=== PATIENT | male | born 1960 | race Caucasian/White ===

== ENCOUNTER → 2020-05-14 | Outpatient (CLI) | payer BC ==
[~2020-05-14] MED LIST: ATOR20TA66 PO; HYDR-3817 PO; OMG1KC PO; PSEU30TA35 PO; TRAZ-227 PO
--- NOTE | 2020-05-14 13:11 | Diagnostic Imaging Report ---
EXAMINATION: CT Lung Screening. INDICATION: Smoker for screening. TECHNIQUE: Noncontrast, low-dose CT imaging performed according to the lung cancer screening protocol. Auto Exposure Controls were utilize during the CT exam to meet ALARA standards for radiation dose reduction. COMPARISON: Baseline. FINDINGS: There is a large right upper lobe apical soft tissue mass, very worrisome for a primary carcinoma. Anterosuperiorly, this likely extends into the chest wall with some irregular sclerotic changes to the distal right 1st rib as well as some mild vague lucency in the lateral and distal right 2nd rib. Lung cancer and Pancoast type tumor is suspected. The mass would be amenable to CT-guided biopsy. In axial dimensions, it measures 6 cm transverse x 4.4 cm AP with a cephalocaudal extent of 5.6 cm. A retroclavicular nodule lateral to the right thyroid lobe on the right measures 2 cm, suspicious for julissa metastasis. A few subcentimeter upper right paratracheal mediastinal nodes are not grossly pathologic. Medial to the azygos vein, there is a borderline lower right paratracheal node measuring 1.2 x 1.0 cm, equivocal. A subcarinal node is within normal limits measuring 1 x 0.5 cm. There is an irregular nodule in the patient's right lower lobe measuring 1.4 x 1.2 cm. The lungs themselves are hyperexpanded with features of centrilobular and paraseptal emphysema. No thoracic effusion or pneumothorax. A few scattered air cysts are present. No findings of pneumonia. No left lung mass. There is an old appearing L1 superior endplate compression deformity without adjacent edema or hemorrhage with minimal 10% stature loss at its anterior third. This appears chronic. The partially visualized unopacified upper abdomen shows no identifiable adrenal mass. The incompletely visualized liver parenchyma appears nonfocal at this uninfused exam. IMPRESSION: 1. A right upper lobe apical lung mass is suspicious for primary carcinoma of the lung. No convincing pathological appearing lymph nodes with a few equivocal nodes listed above. Background COPD is noted. An irregular mass in the right lower lobe may be metastatic. Primary lesion extension through the apical chest wall is suspected with a likely right supraclavicular metastatic node. 2. A metabolic PET CT may be of benefit as further evaluation. The suspected primary mass itself would be amenable to CT-guided biopsy. 3. The ordering physician is currently unavailable. LUNG-RADS CATEGORY:4X Dictated by: Dictated on workstation # [id number]
== END ==
LOC: RAD 09:53
PROVIDERS: ATTEND Nurse Practitioner Community Health
DX: Z12.2 Encounter for screening for malignant neoplasm of respiratory organs (principal); J43.1 Panlobular emphysema; F17.210 Nicotine dependence, cigarettes, uncomplicated; R91.8 Other nonspecific abnormal finding of lung field; R91.1 Solitary pulmonary nodule

== ENCOUNTER 2020-05-16 06:44 | Outpatient (RCR) | payer BC ==
[~2020-05-16] VITALS: Ht 187 cm; Wt 85.4 kg
[2020-05-16] MEDS ORDERED: OMG1KC PO (12:12)
[2020-05-16] MEDS ORDERED: PSEU30TA35 PO (12:12)
[2020-05-16] MEDS ORDERED: ATOR20TA66 PO (12:12)
[2020-05-16] MEDS ORDERED: HYDR-3817 PO (12:12)
[2020-05-16] MEDS ORDERED: TRAZ-227 PO (12:12)
== END 2020-05-16 12:25 | disposition home or self-care (01) ==
LOC: PREOP 06:44 → EDSTATUS 13:45
PROVIDERS: ATTEND Internal Medicine Critical Care Medicine
DX: Z01.818 Encounter for other preprocedural examination (principal)

== ENCOUNTER → 2020-05-20 | Outpatient (CLI) | payer BC | LOC: LAB FS 10:00 | PROVIDERS: ATTEND Internal Medicine Critical Care Medicine | DX: Z01.812 Encounter for preprocedural laboratory examination (principal); Z20.828 Contact with and (suspected) exposure to other viral communicable diseases | CPT/HCPCS: 87635 ==

== ENCOUNTER → 2020-05-21 | Outpatient (CLI) | payer BC ==
[~2020-05-21] MED LIST changes: +BUPR150T14 PO; +NAPR-1073 PO; +SILD100T67 PO
--- NOTE | 2020-05-21 15:09 | Diagnostic Imaging Report ---
INDICATION: Right upper lobe lung mass. TECHNIQUE: Serum blood glucose level at the time of injection was 99 mg/dL. Patient was administered 13.7 mCi F-18 FDG intravenously in left antecubital location and PET imaging was performed from the top of skull to mid thighs. Noncontrast CT was also performed for attenuation correction and anatomic correlation. COMPARISON: No prior PET/CT studies available for comparison. Comparison is made with a CT chest screening study from 05/14/2020. FINDINGS: There is symmetric activity throughout the brain. There is physiologic activity within the soft tissues of the neck. Previously noted mass in the right lung apex is hypermetabolic demonstrating SUV max approximately 14. Hypermetabolic right paratracheal lymph node at the level of the azygos vein demonstrates an SUV max of 5.8. This lymph node demonstrates a short axis measurement of 9 mm. Subcarinal lymph node demonstrates SUV max of 6.3. A right hilar lymph node demonstrates SUV max of 5.8. Vague uptake within the irregular lesion noted in the right lower lobe is noted with SUV max of 2.1. This is indeterminate. Imaging through the abdomen does show physiologic activity in the gastrointestinal and genitourinary tracts. There appears to be hypermetabolic mass in the left adrenal gland with SUV max of 5.5. No other metabolic or hypermetabolic foci are identified. Note is made of borderline aneurysmal dilatation of the infrarenal abdominal aorta measuring 3.0 cm in AP diameter. IMPRESSION: 1. Hypermetabolic right apical lung mass consistent with primary lung neoplasm. There are hypermetabolic lymph nodes in the right hilum and mediastinum consistent with metastatic disease. There is also a probable metastasis to the left adrenal gland. The irregular density noted in the right lower lobe on recent CT chest only shows low level activity and is indeterminate. 2. Infrarenal abdominal aortic aneurysm. Dictated by: Dictated on workstation # [id number]
== END ==
LOC: RAD 11:23
PROVIDERS: ATTEND Nurse Practitioner Family
DX: F17.210 Nicotine dependence, cigarettes, uncomplicated (principal); I71.4 Abdominal aortic aneurysm, without rupture; R91.8 Other nonspecific abnormal finding of lung field; R06.00 Dyspnea, unspecified
CPT/HCPCS: 78815; A9552

== ENCOUNTER 2020-05-22 06:53 | Day surgery (SDC) | payer BC ==
[2020-05-22] VITALS (10 sets, daily range): BP systolic 90–121; BP diastolic 65–85
[~2020-05-22] VITALS: Ht 187 cm; Wt 85.4 kg
[~2020-05-22 06:53] MED LIST changes: -BUPR150T14 PO; +LACTATED RINGERS 1,000 ML IV ONE; -NAPR-1073 PO; -SILD100T67 PO
[2020-05-22] MEDS ORDERED: LIDOCAINE PF 1% 2 ML VIAL IJ ONE (06:54)
[2020-05-22] MEDS ORDERED: LIDOCAINE PF 2% 5 ML (XYLOCAINE) VIAL INJ ONE (06:54)
[2020-05-22] MEDS ORDERED: proPOfol 200 MG/20 ML (DIPRIVAN) VIAL IV ONE ×3 (07:09→08:10)
[2020-05-22] MEDS ORDERED: LIDOCAINE PF 2% 5 ML (XYLOCAINE) VIAL ONE (07:10)
[2020-05-22] MEDS ORDERED: MIDAZOLAM 2 MG/2 ML (VERSED) VIAL ONE (07:10)
[2020-05-22] MEDS ORDERED: ONDANSETRON 4 MG/2 ML (SDV) Z0FRAN ONE (07:10)
[2020-05-22] MEDS ORDERED: fentaNYL INJECTION 100 MCG/2 ML AMP ONE (07:10)
[2020-05-22] MEDS ORDERED: ROCURONIUM 10 MG/ML 5 ML SYRINGE IV ONE (07:11)
[2020-05-22] MEDS ORDERED: NEOSTIGMINE 3 MG/3 ML VIAL ONE (07:11)
[2020-05-22] MEDS ORDERED: GLYCOPYRROLATE 0.2 MG/ML (ROBINUL) 2 ML VIAL ONE (07:12)
[2020-05-22] MEDS ORDERED: PHENYLEPHRINE 100 MCG/ML 10 ML (ANESTHESIA) SYR ONE (07:12)
[2020-05-22] MEDS ORDERED: LACTATED RINGERS 1,000 ML IV STA (07:16)
[2020-05-22] MEDS ORDERED: NAPR-1073 PO (07:29)
[2020-05-22] MEDS ORDERED: SILD100T67 PO (07:29)
[2020-05-22] MEDS ORDERED: BUPR150T14 PO (07:29)
[2020-05-22] MEDS ORDERED: SUCCINYLCHOLINE INJ 100 MG/5 ML SYR ONE (07:37)
--- NOTE | 2020-05-22 08:29 | Pulmonary Procedures ---
Pulmonary Procedures Date of Procedure Date of Service: May 22, 2020 Bronch Bronchoscopy with fluoroscopy transbronchial bx RUL, brush RUL, BAL RUL EBUS with bx of station 10R lymph nodes. Bilateral wash. Preop DX: mediastinal lymphadenopathy with RUL mass PostOP DX: same Complications: None Pt was sedated per anesthesia. Bronchoscopy was advanced through the ET tube and an anatomical undertaken down to the segmental bronchi bilaterally. No endobronchial lesions noted. Bronchoscopy with fluoroscopy transbronchial bx RUL, brush RUL, BAL RUL EBUS with bx of station 10R lymph nodes Pt tolerated procedure well. No complications noted. DUNCAN SAN DO May 22, 2020 08:29
[2020-05-22] MEDS ORDERED: SEVOFLURANE (ULTANE) 15 ML INHAL SOLN ONE (08:41)
--- NOTE | 2020-05-22 09:13 | Diagnostic Imaging Report ---
INDICATION: Post-thoracoscopy. Time of exam 8:41 AM No prior chest x-rays available for comparison. Comparison is made with PET CT study one day earlier. Large rounded mass in the right lung apex is again noted. There is minimal infiltrate in the right upper lobe as well. No pneumothorax is identified, status post bronchoscopy. Left lung is clear. There is no effusion. IMPRESSION: 1. Right upper lobe mass and minimal right upper lobe infiltrate. 2. No evidence of pneumothorax, status post bronchoscopy. Dictated by: Dictated on workstation # [id number]
--- NOTE | 2020-05-22 10:50 | Diagnostic Imaging Report ---
INDICATION: [id number] before bronchoscopy. Fluoroscopy was provided for Dr. Billings during a bronchoscopy. 48 seconds fluoroscopic time was utilized. A single image was obtained. IMPRESSION: Fluoroscopy during bronchoscopy. Dictated by: Dictated on workstation # [id number]
--- NOTE | 2020-05-27 11:47 | Anesthesia-General Post-Op ---
General Significant Intra-Op Events Notes addendum 05-22-2020 at 0930 Patient Condition Mental Status/LOC: Same as Preop Cardiovascular: Satisfactory Nausea/Vomiting: Absent Respiratory: Satisfactory Pain: Controlled Complications: Absent Post Op Complications Complications None Follow Up Care/Instructions Patient Instructions None needed. Anesthesia/Patient Condition Patient Condition Patient is doing well, no complaints, stable vital signs, no apparent adverse anesthesia problems. No complications reported per nursing. ARLETTE LI CRNA May 27, 2020 11:46
== END 2020-05-22 09:50 | disposition home or self-care (01) ==
LOC: ENDO 06:53
PROVIDERS: ATTEND Internal Medicine Critical Care Medicine
DX: R91.8 Other nonspecific abnormal finding of lung field (principal); R59.0 Localized enlarged lymph nodes; F17.210 Nicotine dependence, cigarettes, uncomplicated; Z79.899 Other long term (current) drug therapy; J44.9 Chronic obstructive pulmonary disease, unspecified; E78.5 Hyperlipidemia, unspecified; K21.9 Gastro-esophageal reflux disease without esophagitis; Z94.7 Corneal transplant status
CPT/HCPCS: 71045; 76000; 87015; 87070; 87101; 87116; 87205; 87206; 88112; 88173; 88305; 88312; 94640

== ENCOUNTER 2020-06-06 08:49 | Outpatient (CLI) | payer BC ==
[~2020-06-06] VITALS: Ht 188 cm; Wt 84.8 kg
[2020-06-06] VITALS (15 sets, daily range): BP systolic 90–131; BP diastolic 59–97
[~2020-06-06 08:49] MED LIST changes: +BUPR150T14 PO; -LACTATED RINGERS 1,000 ML IV ONE; +NAPR-1073 PO; +SILD100T67 PO
[2020-06-06] MEDS ORDERED: NS IV 1000 ML 1,000 ML IV STA (09:08)
[2020-06-06] MEDS ORDERED: fentaNYL INJECTION 100 MCG/2 ML AMP IVP ONE (09:15)
[2020-06-06] MEDS ORDERED: MIDAZOLAM 2 MG/2 ML (VERSED) VIAL IVP ONE (09:15)
[2020-06-06] MEDS ORDERED: LIDOCAINE 1% INJ 20 ML 20 ML VIAL INJ ONE (09:15)
[2020-06-06 09:47] LABS: HEMOGLOBIN 13.7 G/DL (13.3-17.7); MEAN PLATELET VOLUME 10.2 FL (7.4-10.4); WHITE BLOOD COUNT 9.2 10^3/uL (4.3-11.0)
[2020-06-06 09:58] LABS: PROTHROMBIN TIME PATIENT 13.6 SEC (12.2-14.7)
[2020-06-06] MEDS ORDERED: MIDAZOLAM 2 MG/2 ML (VERSED) VIAL ONE (09:58)
[2020-06-06] MEDS ORDERED: fentaNYL INJECTION 100 MCG/2 ML AMP ONE (09:58)
[2020-06-06] MEDS ORDERED: NS IV 1000 ML 1,000 ML ONE (09:59)
[2020-06-06] MEDS ORDERED: LIDOCAINE 1% INJ 20 ML 20 ML VIAL ONE (09:59)
[2020-06-06] MEDS ORDERED: HYDROcodone/APAP 5 MG/325 MG (LORTAB) TAB PO PRN (12:00)
--- NOTE | 2020-06-06 12:44 | Diagnostic Imaging Report ---
INDICATION: A right apical lung mass. Patient presents for CT-guided biopsy. TECHNIQUE: All CT scans use one or more of the following dose optimizing techniques: automated exposure control, MA and/or KvP adjustment based on patient size and exam type or iterative reconstruction. Patient brought to the CT suite and placed on table in the prone position. Axial imaging through the chest was performed to evaluate appropriate entry site. The upper right posterior thorax was prepped and draped in usual sterile fashion. Small amount of 1% lidocaine was utilized for local anesthesia. A 20-gauge coaxial Temno needle was advanced from a posterior approach placed with its tip in the right apical mass and multiple core biopsies were obtained. A blood patch was injected during needle removal. Hemostasis was obtained using manual compression. Patient tolerated the procedure well and left the department in stable condition. Postprocedure images show no complicating features. There is no evidence of pneumothorax. IMPRESSION: Successful CT-guided core biopsy of right apical lung mass. Pathology results are currently pending. Dictated by: Dictated on workstation # [id number]
--- NOTE | 2020-06-06 13:08 | Pre-Op Note & Conscious Sedat ---
Pre-Operative Progress Note H&P Reviewed The H&P was reviewed, patient examined and no changes noted. Date H&P Reviewed: Jun 06, 2020 Time H&P Reviewed: 09:00 Pre-Op Diagnosis: Lung mass Conscious Sedation Pre-Proced Time 09:00 ASA Score 2 For ASA 3 and 4: Consider anesthesia and medical clearance. Also, for patients with a history of failed moderate sedation consider anesthesia. Airway Lungs Heart ASA score ASA 1: a normal healthy patient ASA 2: a patient with a mild systemic disease (mid diabetes, controlled hypertension, obesity ASA 3: a patient with a severe systemic disease that limits activity (angina, COPD, prior Myocardial infarction) ASA 4: a patient with an incapacitating disease that is a constant threat to life (CHF, renal failure) ASA 5: a moribund patient not expected to survive 24 hrs. (ruptured aneurysm) ASA 6: a declared brain- patient whose organs are being harvested. For emergent operations, add the letter E after the classification Mallampati Classification Grade 2 Sedation Plan Analgesia, Amnesia, Plan communicated to team members, Discussed options with patient/fam, Discussed risks with patient/fam The patient is an appropriate candidate to undergo the planned procedure, sedation, and anesthesia. The patient immediately re-assessed prior to indication. MARCELLE MOSQUERA MD Jun 06, 2020 13:08
--- NOTE | 2020-06-06 15:22 | Diagnostic Imaging Report ---
INDICATION: Right lung mass, status post biopsy earlier today. TIME OF EXAM: 1:14 p.m. COMPARISON: Correlation is made with prior chest from 05/22/2020. FINDINGS: Right apical mass is again noted. A density in the right base is also noted. There is no pneumothorax, status post right lung biopsy. Left lung is clear. There is no effusion. IMPRESSION: No evidence of pneumothorax, status post right lung biopsy. Dictated by: Dictated on workstation # [id number]
== END 2020-06-06 13:35 | disposition home or self-care (01) ==
LOC: SDC 08:49
PROVIDERS: ATTEND Nurse Practitioner Family
DX: R91.8 Other nonspecific abnormal finding of lung field (principal); R06.89 Other abnormalities of breathing; R06.00 Dyspnea, unspecified; F17.210 Nicotine dependence, cigarettes, uncomplicated; Z98.890 Other specified postprocedural states
CPT/HCPCS: 36415; 71045; 77012; 85027; 85610; 85730

== ENCOUNTER 2020-06-12 09:07 | Outpatient (CLI) | payer BC ==
[2020-06-12] VITALS (13 sets, daily range): BP systolic 97–132; BP diastolic 69–87
[~2020-06-12] VITALS: Ht 188 cm; Wt 84.8 kg
[2020-06-12] MEDS ORDERED: NS IV 1000 ML 1,000 ML IV STA (09:08)
[2020-06-12] MEDS ORDERED: MIDAZOLAM 2 MG/2 ML (VERSED) VIAL IVP ONE (09:15)
[2020-06-12] MEDS ORDERED: LIDOCAINE 1% INJ 20 ML 20 ML VIAL INJ ONE (09:15)
[2020-06-12] MEDS ORDERED: fentaNYL INJECTION 100 MCG/2 ML AMP IVP ONE (09:15)
[2020-06-12 09:34] LABS: BASOPHILS % (AUTO) 0 % (0-10); EOSINOPHILS # (AUTO) 0.4 10^3/uL (0.0-0.3); EOSINOPHILS % (AUTO) 4 % (0-10); HEMATOCRIT 42 % (40-54); HEMOGLOBIN 14.6 G/DL (13.3-17.7); LYMPHOCYTES # (AUTO) 1.5 X 10^3 (1.0-4.0); LYMPHOCYTES % (AUTO) 16 % (12-44); MEAN CORPUSCULAR HEMOGLOBIN 34 PG (25-34); MEAN CORPUSCULAR HGB CONC 35 G/DL (32-36); MEAN CORPUSCULAR VOLUME 98 FL (80-99); MEAN PLATELET VOLUME 9.4 FL (7.4-10.4); MONOCYTES # (AUTO) 0.8 X 10^3 (0.0-1.0); MONOCYTES % (AUTO) 9 % (0-12); NEUTROPHILS # (AUTO) 6.9 X 10^3 (1.8-7.8); NEUTROPHILS % (AUTO) 72 % (42-75); PLATELET COUNT 228 10^3/uL (130-400); WHITE BLOOD COUNT 9.6 10^3/uL (4.3-11.0)
[2020-06-12 09:50] LABS: PROTHROMBIN TIME PATIENT 13.2 SEC (12.2-14.7)
[2020-06-12] MEDS ORDERED: HYDROcodone/APAP 5 MG/325 MG (LORTAB) TAB PO PRN (12:00)
--- NOTE | 2020-06-12 12:08 | Pre-Op Note & Conscious Sedat ---
Pre-Operative Progress Note H&P Reviewed The H&P was reviewed, patient examined and no changes noted. Date H&P Reviewed: Jun 12, 2020 Time H&P Reviewed: 09:00 Pre-Op Diagnosis: Lung mass Conscious Sedation Pre-Proced Time 09:00 ASA Score 2 For ASA 3 and 4: Consider anesthesia and medical clearance. Also, for patients with a history of failed moderate sedation consider anesthesia. Airway Lungs Heart ASA score ASA 1: a normal healthy patient ASA 2: a patient with a mild systemic disease (mid diabetes, controlled hypertension, obesity ASA 3: a patient with a severe systemic disease that limits activity (angina, COPD, prior Myocardial infarction) ASA 4: a patient with an incapacitating disease that is a constant threat to life (CHF, renal failure) ASA 5: a moribund patient not expected to survive 24 hrs. (ruptured aneurysm) ASA 6: a declared brain- patient whose organs are being harvested. For emergent operations, add the letter E after the classification Mallampati Classification Grade 2 Sedation Plan Analgesia, Amnesia, Plan communicated to team members, Discussed options with patient/fam, Discussed risks with patient/fam The patient is an appropriate candidate to undergo the planned procedure, sedation, and anesthesia. The patient immediately re-assessed prior to indication. MARCELLE MOSQUERA MD Jun 12, 2020 12:08
--- NOTE | 2020-06-12 12:10 | Diagnostic Imaging Report ---
INDICATION: Right lung mass. Patient returns for CT-guided biopsy. TECHNIQUE: All CT scans use one or more of the following dose optimizing techniques: automated exposure control, MA and/or KvP adjustment based on patient size and exam type or iterative reconstruction. DETAILS OF THE PROCEDURE: The patient was brought to the CT suite and placed on the table in the left side down decubitus position. Axial imaging through the chest was performed to evaluate for an appropriate entry site. The right anterior chest was prepped and draped in the usual sterile fashion. The procedure was performed utilizing conscious sedation with Radiology nursing and constant patient monitoring. The patient was given a total of 100 mg of fentanyl intravenously and 1 mg of Versed intravenously. The total procedure time was approximately 16 minutes. A small amount of 1% lidocaine was utilized for local anesthesia. A 20-gauge coaxial Temno needle was advanced and placed within the mass in the right upper lobe. A total of four core biopsies was obtained. A blood patch was injected during needle removal. Followup imaging shows no complicating features. No pneumothorax is identified. The patient tolerated the procedure well and left the Department in stable condition. IMPRESSION: Successful CT-guided core biopsy of the right upper lobe mass utilizing conscious sedation. Pathology results are currently pending. Dictated by: Dictated on workstation # [id number]
--- NOTE | 2020-06-12 13:50 | Diagnostic Imaging Report ---
INDICATION: Right lung biopsy. TIME OF EXAM: 1:30 PM. COMPARISON: 06/06/2020. FINDINGS: The right apical lung mass is again noted. There is no evidence of pneumothorax status post right lung biopsy. Basilar interstitial changes are noted. IMPRESSION: No evidence of pneumothorax status post right lung mass biopsy. Dictated by: Dictated on workstation # [id number]
== END 2020-06-12 15:00 | disposition home or self-care (01) ==
LOC: SDC 09:07
PROVIDERS: ATTEND Internal Medicine Critical Care Medicine
DX: R91.8 Other nonspecific abnormal finding of lung field (principal); R06.89 Other abnormalities of breathing; R06.00 Dyspnea, unspecified; F17.210 Nicotine dependence, cigarettes, uncomplicated; Z98.890 Other specified postprocedural states
CPT/HCPCS: 36415; 71045; 77012; 85025; 85610; 85730; 88305; 88344; 99156; 99157

== ENCOUNTER → 2020-06-26 | Outpatient (CLI) | payer BC ==
[~2020-06-26] MED LIST changes: +GADOBUTROL 10 MMOL/10 ML (GADAVIST) VIAL IV ONE
[2020-06-26 13:24] LABS: BUN/CREATININE RATIO 17; CALCIUM 9.2 MG/DL (8.5-10.1); CARBON DIOXIDE 23 MMOL/L (21-32); CHLORIDE 99 MMOL/L (98-107); CREATININE SERUM 0.77 MG/DL (0.60-1.30); GFR ESTIMATED > 60; GLUCOSE 115 MG/DL (70-105); POTASSIUM 4.6 MMOL/L (3.6-5.0); SODIUM 135 MMOL/L (135-145)
--- NOTE | 2020-06-26 14:38 | Diagnostic Imaging Report ---
CLINICAL INDICATION: Patient has history of lung cancer. EXAM: MRI of the brain performed without and with 9 cc of Gadavist IV contrast. Sequences include axial DWI, ADC map, axial gradient echo, axial T2, axial FLAIR, axial T1, axial T1 post IV contrast, coronal T1 fat-sat post IV contrast, and sagittal T1 post IV contrast. COMPARISON: None. FINDINGS: There is a 5 mm focal area of high T2 signal involving the lateral aspect of the left cerebellum with small amount of adjacent parenchymal increased T2 signal. There are no other areas of abnormal IV contrast enhancement. There is otherwise no evidence of acute cerebral infarct, intracranial hemorrhage, or gross mass effect. The brain parenchymal volume appears appropriate for patient's age. There is normal philippe-white matter distinction. There is no significant midline shift or herniation. The [place] vascular structures show no gross abnormality as visualized. The pituitary gland, sella, and suprasellar regions are unremarkable as visualized. There is no evidence of hydrocephalus. The basal cisterns are unremarkable. The skull, extracranial soft tissue, and orbits are unremarkable. There is yzoq-ee-sgvsfrar ethmoid sinus mucosal thickening. There is minimal mucosal thickening involving the frontal sinus. Temporal bones show no significant abnormality. IMPRESSION: 1: There is a 5 mm focal area of enhancement involving the left side of the cerebellum with small amount of adjacent increased T2 signal. This is concerning for metastatic disease. 2: There are no other areas concerning for metastatic disease seen on this exam. 3: Mild age-related brain parenchymal changes. 4: Ybof-wk-kochjlpi ethmoid sinus disease. Dictated by: Dictated on workstation # [id number]
== END ==
LOC: RAD 14:00
PROVIDERS: ATTEND Internal Medicine Hematology & Oncology
DX: C34.90 Malignant neoplasm of unspecified part of unspecified bronchus or lung (principal); G93.89 Other specified disorders of brain; J32.2 Chronic ethmoidal sinusitis
CPT/HCPCS: 36415; 70553; 80048

== ENCOUNTER → 2020-07-30 | Outpatient (CLI) | payer BC ==
[~2020-07-30] MED LIST changes: +PS30T PO; -PSEU30TA35 PO
--- NOTE | 2020-07-30 13:29 | Diagnostic Imaging Report ---
PROCEDURE: MR imaging cervical spine with and without contrast. TECHNIQUE: Multiplanar and multisequence MRI of the cervical spine was performed with and without contrast. INDICATION: Chest pain and right arm pain. Patient has history of a lung mass. Overall quality of study is somewhat compromised due to patient involuntary twitching. There is some straightening of the normal cervical lordotic curvature. Minimal anterolisthesis C3 on C4 and C7 on T1 with minimal retrolisthesis C4 on C5 and C6 on C7 is noted. No geographic marrow lesion is identified. There is multilevel degenerative disc disease with variable disc space narrowing and desiccation with endplate osteophyte formation. Cervical cord does show homogeneous signal intensity and normal morphology. C2-C3: Central canal and neural foramina are patent. C3-C4: Endplate osteophytes indent the ventral thecal sac. Mild narrowing of the canal. There is also fairly significant bilateral neural foraminal narrowing due to uncovertebral joint degenerative change. C4-C5: Endplate osteophytes indent the ventral thecal sac and produce very mild narrowing. There is moderate bilateral neural foraminal stenosis. C5-C6: Endplate osteophytes indent the ventral thecal sac. No significant canal narrowing is seen. Left neural foramen does show moderate narrowing. Right neural foramen is patent. C6-C7: Endplate osteophytes indent the ventral thecal sac, produced mild narrowing. There is significant left and mild right neural foraminal stenosis. C7-T1: Central canal is patent. Neural foramina are patent. The known right apical lung mass is again noted. This extends into the chest wall into the right supraclavicular location. No definite involvement of the mass into the spinal canal or neural foramina is seen. IMPRESSION: Multilevel cervical spondylosis with multilevel central canal and neural foraminal narrowing described level by level above. No abnormal enhancement is identified apart from known right apical and right supraclavicular lung mass. Dictated by: Dictated on workstation # [id number]
== END ==
LOC: RAD 10:15
DX: M47.22 Other spondylosis with radiculopathy, cervical region (principal); M48.02 Spinal stenosis, cervical region; R91.8 Other nonspecific abnormal finding of lung field
CPT/HCPCS: 72156

== ENCOUNTER 2020-09-12 17:03 | Emergency (ER) | payer BC ==
[~2020-09-12] VITALS: Ht 187 cm; Wt 100.0 kg
[~2020-09-12 17:03] MED LIST changes: -GADOBUTROL 10 MMOL/10 ML (GADAVIST) VIAL IV ONE
--- NOTE | 2020-09-12 17:30 | ED General ---
General Chief Complaint: General Problems/Pain Stated Complaint: STROKE SYMPTOMS Nursing Sepsis Screen: No Definite Risk Source of Information: Patient, RN Notes Reviewed History of Present Illness Date Seen by Provider: Sep 12, 2020 Time Seen by Provider: 17:30 Initial Comments 59-year-old male presenting to the emergency department with complaints of memory issues. He had been seen at [facility] which used to be [facility] earlier today for imaging about his metastatic stage 4 lung cancer. He got home this evening and shortly before 5 pm he got a call from [facility] out of [place] that he needed to go to the ED because the tests from showed he had previously had a stroke. He denies any new weakness or numbness in his arms or legs and no difficulty with walking. He has no n/v/ He continues to smoke cigarettes. He denies having a headache. He states he can not remember things so he wants to have us talk to his about everythin. Allergies and Home Medications Allergies Coded Allergies: No Known Drug Allergies (Unverified , 05/16/20) Home Medications Atorvastatin Calcium 20 Mg Tablet, 20 MG PO DAILY, (Reported) [place] 3 Polyunsat Fatty Acids 1,000 Mg Cap, 1,000 MG PO DAILY, (Reported) Pseudoephedrine HCl 30 Mg Tablet, 30 MG PO Q6H PRN for CONSTIPATION-9TH LINE, (Reported) Patient Home Medication List Home Medication List Reviewed: Yes Review of Systems Review of Systems Constitutional: No chills, No fever EENTM: no symptoms reported Respiratory: cough (chronic and no worse than normal) Cardiovascular: No chest pain Gastrointestinal: no symptoms reported Genitourinary: no symptoms reported Musculoskeletal: no symptoms reported Skin: no symptoms reported Psychiatric/Neurological: See HPI Past Msehqfa-Ovvayk-Bcauky Hx Past Med/Social Hx: Reviewed Nursing Past Med/Soc Hx Patient Social History Alcohol Use: Denies Use Recreational Drug Use: No Smoking Status: Current Everyday Smoker Type Used: Cigarettes 2nd Hand Smoke Exposure: Yes Recent Foreign Travel: No Contact w/Someone Who Travel: No Recent Infectious Disease Expo: No Recent Hopitalizations: No Physical Abuse: No Sexual Abuse: No Mistreated: No Fear: No Immunizations Up To Date Tetanus Booster (TDap): Unknown Seasonal Allergies Seasonal Allergies: No Past Medical History Surgeries: Yes (CORNEA TRANSPLANT, WRIST-SCREW) Respiratory: Yes (DYSPNEA) Currently Using CPAP: No Currently Using BIPAP: No Cardiac: Yes High Cholesterol Neurological: No Sexually Transmitted Disease: No HIV/AIDS: No Genitourinary: No Gastrointestinal: Yes Gastroesophageal Reflux Musculoskeletal: No Endocrine: No HEENT: Yes (CONTACTS/GLASSES) Loss of Vision: Denies Hearing Impairment: Denies Cancer: No Psychosocial: No Integumentary: No Blood Disorders: No Adverse Reaction/Blood Tranf: No (N/A) Physical Exam Vital Signs Vital Signs - First Documented 09/12/20 17:18 Temp 36.8 Pulse 84 Resp 18 B/P (MAP) 137/69 (91) Pulse Ox 99 O2 Delivery Room Air Capillary Refill : Less Than 3 Seconds Height, Weight, BMI Height: '" Weight: lbs. oz. kg; 28.00 BMI Method: General Appearance: No Apparent Distress, Chronically ill HEENT: PERRL/EOMI Neck: Non Tender, Supple Respiratory: Chest Non Tender, No Accessory Muscle Use, No Respiratory Distress, Decreased Breath Sounds Cardiovascular: Regular Rate, Rhythm, Normal Peripheral Pulses Gastrointestinal: No Pulsatile Mass, Non Tender, Soft Extremity: Normal Capillary Refill, Non Tender, No Calf Tenderness, No Pedal Edema Neurologic/Psychiatric: Alert, Oriented x3, commercial lines sales executive II-XII Norm as Tested Skin: Normal Color, Warm/Dry Progress/Results/Core Measures Suspected Sepsis Recent Fever Within 48 Hours: No Infection Criteria Present: None New/Unexplained Altered Menta: No Sepsis Screen: No Definite Risk SIRS Temperature: Pulse: 84 Respiratory Rate: 18 Blood Pressure 137 /69 Mean: 91 Results/Orders My Orders Orders - GEOVANY STARKEY MD Ct Head Wo (09/12/20 17:28) Vital Signs/I&O 09/12/20 09/12/20 17:18 19:38 Temp 36.8 36.8 Pulse 84 84 Resp 18 18 B/P (MAP) 137/69 (91) 137/69 (91) Pulse Ox 99 99 O2 Delivery Room Air Room Air Capillary Refill : Less Than 3 Seconds Blood Pressure Mean: 91 Progress Note #1: Progress Note try to get records from [facility] in about his tests today. Perform CT head to see if any change from previous imaging here in our system. Progress Note #2: Progress Note Records from [facility] in obtained for MRI brain as well as the CT scan from here in ED. both show area in left frontal lobe with acute/subacute cva. He has metastatic area with hemorrhage in it as well. No active bleeding seen on MRI. D/w Dr. Mack from [facility] as she is contract administration manager for the service at [facility]. With pt having no sudden deficit and not presenting in a treatment window opportunity there are more risks than benefits for an acute hospital admit. He would need to quit smoking and check with [facility] and Ruba Wilson to see if they felt he was a candidate for aspirin therapy or anticoagulant therapy since he also has some area of hemorrhage in his metastatic disease. He may need Carotid doppler and Echo and other work up but these may have also been done recently with his cancer work up. will defer to Ruba Wilson and staff that know him better. Rn Compliance and pt that if he has new neuro deficit or changes to be seen immediately. Call clinic in am to determine follow up and aspirin therapy and next steps for outpatient work up. Diagnostic Imaging Diagonstic Imaging: CT Plain Films/CT/US/NM/MRI: head Comments [facility], [facility]. [place], [place] NAME: FIONA KAM [facility] REC#: [id number] PT STATUS: REG ER : 1960 PHYSICIAN: GEOVANY STARKEY MD ADMIT DATE: 09/12/20/ER FS Draft Date of Exam:09/12/20 CT HEAD WO EXAMINATION: CT head without contrast. TECHNIQUE: Multiple contiguous axial images were obtained through the brain without the use of intravenous contrast. All CT scans use one or more of the following dose optimizing techniques: automated exposure control, MA and/or KvP adjustment based on a patient size and exam type, or iterative reconstruction. HISTORY: Stroke seen on recent imaging COMPARISON: None available. FINDINGS: There is a 10 mm peripherally high attenuating centrally low attenuating lesion in the left cerebellum. There is a new area of edema in the left alexander radiata. No mass effect or midline shift. The ventricles are normal in size and configuration. Basilar cisterns are patent. There are no intra- or extra-axial fluid collections. The orbits are normal. Paranasal sinuses are normal. Mastoid air cells are clear. No soft tissue abnormality is seen. No osseus lesions or fractures are seen. IMPRESSION: 1. Peripherally high attenuating and centrally low attenuating lesion in the left cerebellar hemisphere measuring 10 mm. The morphology is most concerning for a focal metastatic lesion with internal hemorrhage. MRI is recommended for further evaluation, with and without contrast. 2. Area of hypoattenuation in the left alexander radiata, this can be evaluated on MRI as well as they may reflect a subacute infarct. 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 Decision time for Depature: 19:20 Referrals: [facility] (PCP) Primary Care Physician ASHLEY BAIG (Family) Primary Care Physician Patient Instructions: Stroke Rehab Information, Brain Metastases, Lowering the Risk of Having Another Stroke Add. Discharge Instructions: Call Ruba Wilson in the morning and see if the clinic wants you to be taking a baby aspirin or any blood thinner after finding a stroke on your testing today. You also have some area of blood in the metastatic lesions in your brain so there is a risk that taking blood thinners like aspirin could make you have more bleeding there. Ruba may have to discuss this with the Oncology doctors at [facility] or have you see a Neurology/Stroke specialist to decide about taking any additional medicine. If you have new weakness on one side of your body, trouble swallowing, trouble with your speech or new possible stroke symptoms then seek medical care right away to see what treatment options are available for you. All discharge instructions reviewed with patient and/or family. Voiced understanding. GEOVANY STARKEY MD Sep 12, 2020 17:30
--- NOTE | 2020-09-12 18:05 | Diagnostic Imaging Report ---
EXAMINATION: CT head without contrast. TECHNIQUE: Multiple contiguous axial images were obtained through the brain without the use of intravenous contrast. All CT scans use one or more of the following dose optimizing techniques: automated exposure control, MA and/or KvP adjustment based on a patient size and exam type, or iterative reconstruction. HISTORY: Stroke seen on recent imaging COMPARISON: None available. FINDINGS: There is a 10 mm peripherally high attenuating centrally low attenuating lesion in the left cerebellum. There is a new area of edema in the left alexander radiata. No mass effect or midline shift. The ventricles are normal in size and configuration. Basilar cisterns are patent. There are no intra- or extra-axial fluid collections. The orbits are normal. Paranasal sinuses are normal. Mastoid air cells are clear. No soft tissue abnormality is seen. No osseus lesions or fractures are seen. IMPRESSION: 1. Peripherally high attenuating and centrally low attenuating lesion in the left cerebellar hemisphere measuring 10 mm. The morphology is most concerning for a focal metastatic lesion with internal hemorrhage. MRI is recommended for further evaluation, with and without contrast. 2. Area of hypoattenuation in the left alexander radiata, this can be evaluated on MRI as well as they may reflect a subacute infarct. Dictated by: Dictated on workstation # [id number]
[2020-09-12 19:38] VITALS: BP 137/69
== END 2020-09-12 19:38 | disposition home or self-care (01) ==
LOC: EDUNIT# 17:03 → ER FS 17:05
DX: I63.9 Cerebral infarction, unspecified (principal); C79.31 Secondary malignant neoplasm of brain; E78.00 Pure hypercholesterolemia, unspecified; F17.210 Nicotine dependence, cigarettes, uncomplicated
CPT/HCPCS: 70450

== ENCOUNTER → 2020-10-23 | Outpatient (CLI) | payer BC | LOC: CARD 09:10 | PROVIDERS: ATTEND Nurse Practitioner Family | DX: I63.9 Cerebral infarction, unspecified (principal); I51.7 Cardiomegaly | CPT/HCPCS: 93225; 93226; 93306 ==

== ENCOUNTER 2020-11-15 15:38 | Observation (INO) | payer BC ==
[~2020-11-15] VITALS: Ht 188.9 cm; Wt 75.7 kg
[2020-11-15] MEDS ORDERED: NS IV 1000 ML 1,000 ML IV SCH (16:15)
[2020-11-15] MEDS ORDERED: morphine INJ 10 MG/ML 1ML (SYR OR VIAL) IVP STA (16:15)
[2020-11-15] MEDS ORDERED: ONDANSETRON 4 MG/2 ML (SDV) Z0FRAN IVP ONE (16:15)
--- NOTE | 2020-11-15 16:35 | Diagnostic Imaging Report ---
INDICATION: Shortness of breath. EXAMINATION: Frontal chest obtained at 04:13 p.m. and compared to 06/12/2020. FINDINGS: Heart is normal in size. There is central vascular congestion with some interstitial edema and/or fibrosis. These findings are not changed compared to the prior study. There is a mass in the right apex again noted which is similar in size to the prior study. There is no pneumothorax or pleural fluid. There is a new Port-A-Cath over the left chest with catheter tip overlying the SVC right atrial junction. IMPRESSION: There is some central vascular congestion with interstitial edema and/or fibrosis, similar to the prior study. There is no new infiltrate. Stable right apical lung mass. There is no significant pleural fluid. Dictated by: Dictated on workstation # [id number]
[2020-11-15 17:01] LABS: WHITE BLOOD COUNT 10.7 10^3/uL (4.3-11.0)
[2020-11-15 17:02] LABS: BASOPHILS % (AUTO) 0 % (0-10); EOSINOPHILS # (AUTO) 0.4 10^3/uL (0.0-0.3); EOSINOPHILS % (AUTO) 4 % (0-10); HEMATOCRIT 34 % (40-54); HEMOGLOBIN 11.6 G/DL (13.3-17.7); LYMPHOCYTES # (AUTO) 0.8 X 10^3 (1.0-4.0); LYMPHOCYTES % (AUTO) 7 % (12-44); MEAN CORPUSCULAR HEMOGLOBIN 33 PG (25-34); MEAN CORPUSCULAR HGB CONC 35 G/DL (32-36); MEAN CORPUSCULAR VOLUME 96 FL (80-99); MEAN PLATELET VOLUME 10.4 FL (7.4-10.4); MONOCYTES # (AUTO) 0.9 X 10^3 (0.0-1.0); MONOCYTES % (AUTO) 8 % (0-12); NEUTROPHILS # (AUTO) 8.6 X 10^3 (1.8-7.8); NEUTROPHILS % (AUTO) 80 % (42-75); PLATELET COUNT 69 10^3/uL (130-400)
[2020-11-15 17:23] LABS: ALANINE AMINOTRANSFERASE 14 U/L (0-55); ALBUMIN 3.8 GM/DL (3.2-4.5); ALKALINE PHOSPHATASE 77 U/L (40-136); BILIRUBIN,TOTAL 0.4 MG/DL (0.1-1.0); BUN/CREATININE RATIO 19; CALCIUM 8.8 MG/DL (8.5-10.1); CARBON DIOXIDE 27 MMOL/L (21-32); CHLORIDE 103 MMOL/L (98-107); GFR ESTIMATED > 60; GLUCOSE 99 MG/DL (70-105); POTASSIUM 4.4 MMOL/L (3.6-5.0); SODIUM 137 MMOL/L (135-145); TOTAL PROTEIN 6.1 GM/DL (6.4-8.2)
[2020-11-15 17:49] LABS: EOSINOPHILS % (MANUAL) 2 %; LYMPHOCYTES % (MANUAL) 7 %; MONOCYTES % (MANUAL) 7 %; NEUTROPHILS % (MANUAL) 84 %
[2020-11-15] MEDS ORDERED: ASPIRIN 81 MG CHEW (CHILDREN'S ASA) PO ONE (21:15)
[2020-11-15 23:11] VITALS: BP 108/52
[2020-11-15] MEDS ORDERED: ONDANSETRON 4 MG/2 ML (SDV) Z0FRAN IV PRN (23:45)
[2020-11-15] MEDS ORDERED: CATHETER FLUSH 10 ML SYR IV PRN (23:45)
[2020-11-15] MEDS: morphine INJ 4 MG/ML 1 ML (VIAL/SYRINGE) IV PRN (23:49)
[2020-11-16] MEDS: NICOTINE 14 MG (NICODERM) PATCH TD SCH ×2 (00:32→10:14)
[2020-11-16] MEDS ORDERED: LORazepam INJ 2 MG/ML (ATIVAN) VIAL ONE (02:49)
[2020-11-16] MEDS: LORazepam INJ 2 MG/ML (ATIVAN) VIAL IVP PRN ×2 (02:59→10:14)
[2020-11-16] MEDS: CATHETER FLUSH 10 ML SYR IV SCH ×2 (03:00→14:39)
[2020-11-16 04:26] VITALS: BP 100/54
[2020-11-16] MEDS: morphine INJ 4 MG/ML 1 ML (VIAL/SYRINGE) IV PRN ×3 (05:34→15:52)
[2020-11-16 06:33] LABS: BASOPHILS % (AUTO) 0 % (0-10); MEAN CORPUSCULAR HEMOGLOBIN 33 pg (25-34); MEAN CORPUSCULAR HGB CONC 34 g/dL (32-36); MEAN CORPUSCULAR VOLUME 97 fL (80-99)
[2020-11-16 06:36] LABS: EOSINOPHILS # (AUTO) 0.3 10^3/uL (0.0-0.3); EOSINOPHILS % (AUTO) 3 % (0-10); HEMATOCRIT 34 % (40-54); HEMOGLOBIN 11.4 g/dL (13.3-17.7); LYMPHOCYTES # (AUTO) 0.9 10^3/uL (1.0-4.0); LYMPHOCYTES % (AUTO) 7 % (12-44); MONOCYTES % (AUTO) 8 % (0-12); NEUTROPHILS # (AUTO) 9.5 10^3/uL (1.8-7.8); NEUTROPHILS % (AUTO) 81 % (42-75); PLATELET COUNT 62 10^3/uL (130-400); WHITE BLOOD COUNT 11.7 10^3/uL (4.3-11.0)
[2020-11-16 06:40] LABS: ALBUMIN 3.5 GM/DL (3.2-4.5); CHLORIDE 103 MMOL/L (98-107); POTASSIUM 4.2 MMOL/L (3.6-5.0); SODIUM 136 MMOL/L (135-145)
[2020-11-16 06:41] LABS: CALCIUM 8.2 MG/DL (8.5-10.1)
[2020-11-16 06:42] LABS: GLUCOSE 97 MG/DL (70-105); TOTAL PROTEIN 6.1 GM/DL (6.4-8.2)
[2020-11-16 06:43] LABS: CARBON DIOXIDE 23 MMOL/L (21-32)
[2020-11-16 06:44] LABS: BILIRUBIN,TOTAL 0.6 MG/DL (0.1-1.0)
[2020-11-16 06:46] LABS: ALKALINE PHOSPHATASE 62 U/L (40-136); CREATININE SERUM 0.79 MG/DL (0.60-1.30); GFR ESTIMATED > 60
[2020-11-16 06:47] LABS: BUN/CREATININE RATIO 19
[2020-11-16 06:49] LABS: ALANINE AMINOTRANSFERASE 16 U/L (0-55)
[2020-11-16 07:12] LABS: BAND NEUTROPHILS 2 %; EOSINOPHILS % (MANUAL) 2 %; LYMPHOCYTES % (MANUAL) 13 %; MONOCYTES % (MANUAL) 3 %; NEUTROPHILS % (MANUAL) 80 %; RBC MORPH NORMAL
[2020-11-16 08:00] VITALS: BP 130/72
[2020-11-16 08:15] VITALS: BP 118/61
[2020-11-16] MEDS ORDERED: KETOROLAC 30 MG/ML VIAL IVP ONE (09:00)
--- NOTE | 2020-11-16 10:22 | History & Physical-Hospitalist ---
History of Present Illness HPI/Chief Complaint The patient is a 60-year-old white male with metastatic non-small cell lung cancer who his brought him to the emergency room because of increased confusion over baseline and apparent increase in his right chest wall pain. He had received his first dose of palliative radiation therapy to the right chest as his states that he has had involvement of the right brachial plexus with a lot of pain despite high-dose methadone 40 mg twice daily and gabapentin 600 mg 3 times daily. He has had intermittent confusion that in the past they felt was aggravated by morphine long-acting which resulted in his switch to methadone. He still been getting short acting morphine. On my arrival he was confused complaining about right chest wall pain and wishing to smoke. He has a 3 pack/day habits and currently has a nicotine patch on started last night had threatened to leave AMA but after Ativan for anxiety we were able to convince him to stay. His confirms that he has been DO NOT RESUSCITATE status. Unfortunately in the emergency room because of his chest wall pain which was right-sided and very noncardiac sounding troponin level was obtained and was weakly positive at 0.5 it was repeated several hours later and was 0.7. ECG did not reveal any acute ischemic change but incomplete right bundle branch block left anterior fascicular block reportedly not a new finding. He had received his first radiation therapy treatment on and the was concerned that his change in status was secondary to a side effect of radiation therapy. Date Seen 11/16/20 Time Seen by a Provider: 09:00 Attending Physician Farida Munoz MD [facility] Referring Physician Date of Admission Nov 15, 2020 at 22:23 Home Medications & Allergies Home Medications Reviewed patient Home Medication Reconciliation performed by pharmacy medication reconciliations veterinary technician assistant and/or nursing. Patients Allergies have been reviewed. Allergies Allergies Coded Allergies No Known Drug Allergies (Unverified05/16/20) Past Iqvaupy-Ousfmg-Reuzzx Hx Past Med/Social Hx: Reviewed and Corrections made Patient Social History Alcohol Use: Denies Use Recreational Drug Use: No Smoking Status: Current Everyday Smoker Type Used: Cigarettes 2nd Hand Smoke Exposure: Yes Recent Foreign Travel: No Contact w/other who traveled: No Recent Hopitalizations: No Recent Infectious Disease Expo: No Immunizations Up To Date Tetanus Booster (TDap): Unknown Seasonal Allergies Seasonal Allergies: No Past Medical History Currently Using CPAP: No Currently Using BIPAP: No Cardiac: High Cholesterol Sexually Transmitted Disease: No HIV/AIDS: No Gastrointestinal: Gastroesophageal Reflux Loss of Vision: Denies Hearing Impairment: Denies History of Blood Disorders: No Adverse Reaction to Blood Stein: No (N/A) Review of Systems Constitutional: see HPI Physical Exam Physical Exam Vital Signs Vital Signs - First Documented 11/15/20 15:48 Temp 37.2 Pulse 67 Resp 20 B/P (MAP) 116/41 (66) Pulse Ox 96 O2 Delivery Room Air Capillary Refill : Less Than 3 Seconds Height, Weight, BMI Height: '" Weight: lbs. oz. kg; 21.21 BMI Method: General Appearance: Moderate Distress Respiratory: Lungs Clear, Normal Breath Sounds, No Accessory Muscle Use, No Respiratory Distress, Other (Allodynia of the right chest wall with severe pain with minimal pressure no obvious deformities noted.) Cardiovascular: Regular Rate, Rhythm, No Edema, No Gallop, No JVD, No Murmur, Normal Peripheral Pulses Gastrointestinal: Normal Bowel Sounds, No Organomegaly, No Pulsatile Mass, Non Tender, Soft Extremity: No Calf Tenderness, No Pedal Edema Results Results/Procedures Labs Laboratory Tests 11/15/20 16:55 11/16/20 05:45 Patient resulted labs reviewed. Assessment/Plan Admission Diagnosis 1. Right chest wall pain secondary to non-small cell carcinoma that apparently started in the right upper lobe with direct extension into the chest wall as well as right brachial plexus will resume methadone as needed morphine add Toradol and continue gabapentin as well. 2. Delirium multifactorial 3. COPD secondary to significant ongoing tobaccoism. 4. Continue DNR status as per who understands the gravity of his circumstances and wishes comfort care at this point. Advised hospice as long as they can continue palliative radiotherapy which should be the case which she is agreeable to. They have been contacted and will likely visit both of them at home on discharge. Admission Status: Inpatient Order (span 2 midnights) Reason for Inpatient Admission: See admission diagnosis FARIDA MUNOZ MD Nov 16, 2020 10:22
[2020-11-16] MEDS ORDERED: METHADONE 10 MG (DOLOPHINE) TAB PO ONE (11:00)
[2020-11-16 12:00] VITALS: BP 115/65
[2020-11-16] MEDS ORDERED: GABAPENTIN 600 MG (NEURONTIN) TAB PO SCH (13:00)
[2020-11-16] MEDS ORDERED: KETOROLAC 30 MG/ML VIAL IVP PRN (15:00)
[2020-11-16 15:57] VITALS: BP 114/56
[2020-11-16] MEDS ORDERED: METHADONE 10 MG (DOLOPHINE) TAB PO SCH (21:00)
== END 2020-11-16 16:17 | disposition left against medical advice (07) ==
LOC: EDUNIT# 15:38 → ER FS 15:39 → UNDOADMIN 22:23 → 4TH 22:23 → UNDODISIN 11-16 16:17
PROVIDERS: ADMIT Internal Medicine; ATTEND Internal Medicine
DX: G89.3 Neoplasm related pain (acute) (chronic) (principal); C34.11 Malignant neoplasm of upper lobe, right bronchus or lung; C79.89 Secondary malignant neoplasm of other specified sites; R41.0 Disorientation, unspecified; J44.9 Chronic obstructive pulmonary disease, unspecified; Z66 Do not resuscitate; F17.210 Nicotine dependence, cigarettes, uncomplicated; E78.00 Pure hypercholesterolemia, unspecified; K21.9 Gastro-esophageal reflux disease without esophagitis
CPT/HCPCS: 36415; 71045; 80053 ×2; 83880; 84484 ×2; 85007 ×2; 85027 ×2; 93005 ×2; 99284; G0378

== ENCOUNTER 2020-11-25 19:36 | Emergency (ER) | payer BC ==
[2020-11-25 19:56] LABS: BASOPHILS % (AUTO) 0 % (0-10); EOSINOPHILS # (AUTO) 0.4 10^3/uL (0.0-0.3); EOSINOPHILS % (AUTO) 4 % (0-10); HEMATOCRIT 32 % (40-54); HEMOGLOBIN 10.4 G/DL (13.3-17.7); LYMPHOCYTES # (AUTO) 0.6 X 10^3 (1.0-4.0); LYMPHOCYTES % (AUTO) 5 % (12-44); MEAN CORPUSCULAR HEMOGLOBIN 32 PG (25-34); MEAN CORPUSCULAR HGB CONC 33 G/DL (32-36); MEAN CORPUSCULAR VOLUME 97 FL (80-99); MEAN PLATELET VOLUME 11.1 FL (7.4-10.4); MONOCYTES # (AUTO) 0.9 X 10^3 (0.0-1.0); MONOCYTES % (AUTO) 7 % (0-12); NEUTROPHILS # (AUTO) 10.1 X 10^3 (1.8-7.8); NEUTROPHILS % (AUTO) 84 % (42-75); PLATELET COUNT 68 10^3/uL (130-400); WHITE BLOOD COUNT 12.1 10^3/uL (4.3-11.0)
[2020-11-25] MEDS ORDERED: HOLD METFORMIN - RECEIVED CONTRAST 20 ML VIAL IV SCH (20:00)
[2020-11-25] MEDS ORDERED: NS 100 ML (IVPB) BAG IV ONE (20:00)
[2020-11-25] MEDS ORDERED: CATHETER FLUSH 10 ML SYR IV PRN (20:00)
[2020-11-25] MEDS ORDERED: IOHEXOL 350 MG/ML 100 ML (OMNIPAQUE 350) VIAL IV ONE (20:00)
[2020-11-25 20:16] LABS: SODIUM 140 MMOL/L (135-145)
[2020-11-25 20:17] LABS: ALANINE AMINOTRANSFERASE 13 U/L (0-55); ALBUMIN 3.6 GM/DL (3.2-4.5); ALKALINE PHOSPHATASE 72 U/L (40-136); BILIRUBIN,TOTAL 0.3 MG/DL (0.1-1.0); BUN/CREATININE RATIO 19; CALCIUM 8.7 MG/DL (8.5-10.1); CARBON DIOXIDE 26 MMOL/L (21-32); CHLORIDE 104 MMOL/L (98-107); CREATININE SERUM 0.81 MG/DL (0.60-1.30); GFR ESTIMATED > 60; GLUCOSE 107 MG/DL (70-105); POTASSIUM 4.3 MMOL/L (3.6-5.0); TOTAL PROTEIN 6.2 GM/DL (6.4-8.2)
[2020-11-25 20:18] LABS: INR 1.2 (0.8-1.4)
--- NOTE | 2020-11-25 20:18 | Diagnostic Imaging Report ---
HISTORY: Stroke COMPARISON: 11/15/2020 and priors. TECHNIQUE: Frontal view of the chest. FINDINGS: Lung volumes are large. Redemonstrated is dense consolidation in the right upper lobe. Interstitial opacities appear mildly increased even compared to the prior exam. There is no pleural effusion. No pneumothorax is seen. Lucency along the lateral left chest wall is thought to represent the axillary line. The cardiac silhouette is normal in size. The left Port-A-Cath tip projects over the low SVC. IMPRESSION: 1. Mildly increased interstitial opacities bilaterally, may be due to an interstitial edema or chronic fibrotic change. 2. Redemonstrated dense consolidation/mass in the right upper lobe appears unchanged. Dictated by: Dictated on workstation # [id number]
[2020-11-25 20:19] LABS: BAND NEUTROPHILS 6 %; EOSINOPHILS % (MANUAL) 3 %; LYMPHOCYTES % (MANUAL) 4 %; MONOCYTES % (MANUAL) 7 %; NEUTROPHILS % (MANUAL) 80 %
--- NOTE | 2020-11-25 20:19 | ED General ---
General Chief Complaint: Neuro-Stroke Like Symptoms Stated Complaint: STROKE SYMPTOMS Nursing Triage Note: Pt brought in by ems with stroke-like symptoms. Nursing Sepsis Screen: No Definite Risk History of Present Illness Date Seen by Provider: Nov 25, 2020 Time Seen by Provider: 19:45 Initial Comments Patient is a 60-year-old male with lung cancer with metastatic disease to the brain who presents with strokelike symptoms. Patient had acute onset of left-sided weakness involving face, left upper and left lower extremity. Symptom onset was 40 minutes prior to ED arrival and witnessed by spouse. Patient denies headache, change in vision, difficulty swallowing. Speech is coherent and fluid and he is able to swallow his secretions. Denies chest pain palpitations shortness of breath. Patient completed an outpatient stroke work- up a week ago at [facility] in [place]. He was told at that time that he had 2 recent strokes. A JERAMY was discussed at that time but not performed due to the patient's advanced stage and palliative status. Timing/Duration: 1 Hour Severity: Severe Modifying Factors: improves with Other Associated Systoms: Other Allergies and Home Medications Allergies Coded Allergies: No Known Drug Allergies (Unverified , 05/16/20) Home Medications Atorvastatin Calcium 20 Mg Tablet, 20 MG PO DAILY, (Reported) [place] 3 Polyunsat Fatty Acids 1,000 Mg Cap, 1,000 MG PO DAILY, (Reported) Pseudoephedrine HCl 30 Mg Tablet, 30 MG PO Q6H PRN for CONSTIPATION-9TH LINE, (Reported) Patient Home Medication List Home Medication List Reviewed: Yes Review of Systems Review of Systems Constitutional: see HPI EENTM: see HPI Respiratory: see HPI Cardiovascular: see HPI Gastrointestinal: see HPI Genitourinary: see HPI Musculoskeletal: see HPI Skin: see HPI Psychiatric/Neurological: See HPI Hematologic/Lymphatic: See HPI Immunological/Allergic: see HPI All Other Systems Reviewed Negative Unless Noted: Yes Past Ifwdobw-Bbjznd-Bmcdbi Hx Past Med/Social Hx: Reviewed Nursing Past Med/Soc Hx Patient Social History Alcohol Use: Denies Use Type Used: Cigarettes 2nd Hand Smoke Exposure: Yes Recent Infectious Disease Expo: No Recent Hopitalizations: No Immunizations Up To Date Tetanus Booster (TDap): Unknown Seasonal Allergies Seasonal Allergies: No Past Medical History Surgeries: Yes (CORNEA TRANSPLANT, WRIST-SCREW) Respiratory: Yes (DYSPNEA, lung cancer) Currently Using CPAP: No Currently Using BIPAP: No Cardiac: Yes High Cholesterol Neurological: No Sexually Transmitted Disease: No HIV/AIDS: No Genitourinary: No Gastrointestinal: Yes Gastroesophageal Reflux Musculoskeletal: No Endocrine: No HEENT: Yes (CONTACTS/GLASSES) Loss of Vision: Denies Hearing Impairment: Denies Cancer: No Psychosocial: No Integumentary: No Blood Disorders: No Adverse Reaction/Blood Tranf: No (N/A) Physical Exam Vital Signs Vital Signs - First Documented 11/25/20 20:01 Temp 37.0 Pulse 56 Resp 18 B/P (MAP) 121/50 (73) Pulse Ox 98 O2 Delivery Nasal Cannula O2 Flow Rate 2.00 Capillary Refill : Less Than 3 Seconds Height, Weight, BMI Height: '" Weight: lbs. oz. kg; 21.21 BMI Method: General Appearance: Chronically ill, Cachetic, Thin (Somnolent) Eyes: Bilateral Eye Normal Inspection, Bilateral Eye PERRL, Bilateral Eye EOMI HEENT: PERRL/EOMI, Pharynx Normal, Other Neck: Other Respiratory: Chest Non Tender, Lungs Clear, Other Cardiovascular: Regular Rate, Rhythm Gastrointestinal: Other Back: Other Neurologic/Psychiatric: Other (Flaccid paralysis of left face, left upper left lower extremity with sensation LOC. NIH stroke score of 15) Focused Exam Sepsis Stage: Ruled Out Progress/Results/Core Measures Suspected Sepsis Recent Fever Within 48 Hours: No Infection Criteria Present: None New/Unexplained Altered Menta: No Sepsis Screen: No Definite Risk SIRS Temperature: Pulse: 56 Respiratory Rate: 18 Laboratory Tests 11/25/20 19:43: White Blood Count 12.1H Blood Pressure 121 /50 Mean: 73 Laboratory Tests 11/25/20 19:43: Creatinine 0.81, INR Comment 1.2, Platelet Count 68L, Total Bilirubin 0.3 Results/Orders Lab Results Laboratory Tests Test 11/25/20 19:43 11/25/20 19:52 Range/Units White Blood Count 12.1 H 4.3-11.0 10^3/uL Red Blood Count 3.25 L 4.35-5.85 10^6/uL Hemoglobin 10.4 L 13.3-17.7 G/DL Hematocrit 32 L 40-54 % Mean Corpuscular Volume 97 80-99 FL Mean Corpuscular Hemoglobin 32 25-34 PG Mean Corpuscular Hemoglobin Concent 33 32-36 G/DL Red Cell Distribution Width 13.3 10.0-14.5 % Platelet Count 68 L 130-400 10^3/uL Mean Platelet Volume 11.1 H 7.4-10.4 FL Immature Granulocyte % (Auto) 1 % Neutrophils (%) (Auto) 84 H 42-75 % Lymphocytes (%) (Auto) 5 L 12-44 % Monocytes (%) (Auto) 7 0-12 % Eosinophils (%) (Auto) 4 0-10 % Basophils (%) (Auto) 0 0-10 % Neutrophils # (Auto) 10.1 H 1.8-7.8 X 10^3 Lymphocytes # (Auto) 0.6 L 1.0-4.0 X 10^3 Monocytes # (Auto) 0.9 0.0-1.0 X 10^3 Eosinophils # (Auto) 0.4 H 0.0-0.3 10^3/uL Basophils # (Auto) 0.0 0.0-0.1 10^3/uL Immature Granulocyte # (Auto) 0.1 0.0-0.1 10^3/uL Neutrophils % (Manual) 80 % Lymphocytes % (Manual) 4 % Monocytes % (Manual) 7 % Eosinophils % (Manual) 3 % Band Neutrophils 6 % Hypochromasia 1+ Blood Morphology Comment Prothrombin Time 16.0 H 12.2-14.7 SEC INR Comment 1.2 0.8-1.4 Activated Partial Thromboplast Time 30 24-35 SEC Sodium Level 140 135-145 MMOL/L Potassium Level 4.3 3.6-5.0 MMOL/L Chloride Level 104 98-107 MMOL/L Carbon Dioxide Level 26 21-32 MMOL/L Anion Gap 10 5-14 MMOL/L Blood Urea Nitrogen 15 7-18 MG/DL Creatinine 0.81 0.60-1.30 MG/DL Estimat Glomerular Filtration Rate > 60 BUN/Creatinine Ratio 19 Glucose Level 107 H 70-105 MG/DL Calcium Level 8.7 8.5-10.1 MG/DL Corrected Calcium 9.0 8.5-10.1 MG/DL Total Bilirubin 0.3 0.1-1.0 MG/DL Aspartate Amino Transf (AST/SGOT) 13 5-34 U/L Alanine Aminotransferase (ALT/SGPT) 13 0-55 U/L Alkaline Phosphatase 72 40-136 U/L Total Protein 6.2 L 6.4-8.2 GM/DL Albumin 3.6 3.2-4.5 GM/DL Glucometer 95 70-110 MG/DL My Orders Orders - KALI MENJIVAR DO Cbc With Automated Diff (11/25/20 19:47) Comprehensive Metabolic Panel (11/25/20 19:47) Ct Angio Head/Neck (11/25/20 19:47) Protime With Inr (11/25/20 19:47) Partial Thromboplastin Time (11/25/20 19:47) Continuous Ekg Monitoring (11/25/20 19:47) Chest 1 View Ap/Pa Only (11/25/20 19:47) Accucheck Fasting (11/25/20 19:47) Iohexol Injection (Omnipaque 350 Mg/Ml 1 (11/25/20 20:00) Received Contrast (Hold Metformin- Contr (11/25/20 20:00) Sodium Chloride Flush (Catheter Flush Sy (11/25/20 20:00) Ns (Ivpb) (Sodium Chloride 0.9% Ivpb Bag (11/25/20 20:00) Manual Differential (11/25/20 19:43) Haloperidol Injection (Haldol Injectio (11/25/20 22:30) Morphine Injection (Morphine Injection (11/25/20 22:39) Ondansetron Injection (Zofran Injectio (11/25/20 22:45) Morphine Injection (Morphine Injection (11/25/20 22:52) Troponin I Fs (11/26/20 00:37) Medications Given in ED Current Medications Medications Dose Ordered Sig/Ty Route Start Time Stop Time Status Last Admin Dose Admin Haloperidol Lactate 2.5 mg ONCE ONCE IV 11/25/20 22:30 11/25/20 22:31 DC 11/25/20 22:28 2.5 MG Iohexol 100 ml ONCE ONCE IV 11/25/20 20:00 11/25/20 20:01 DC 11/25/20 21:37 100 ML Ondansetron HCl 4 mg ONCE ONCE IVP 11/25/20 22:45 11/25/20 22:46 DC 11/25/20 22:44 4 MG Sodium Chloride 10 ml NEEDED PRN IV 11/25/20 20:00 11/25/20 21:38 10 ML Sodium Chloride 100 ml ONCE ONCE IV 3/1/21 20:00 11/25/20 20:01 DC 11/25/20 21:38 60 ML Vital Signs/I&O 11/25/20 20:01 Temp 37.0 Pulse 56 Resp 18 B/P (MAP) 121/50 (73) Pulse Ox 98 O2 Delivery Nasal Cannula O2 Flow Rate 2.00 Capillary Refill : Less Than 3 Seconds Blood Pressure Mean: 73 Departure Communication (Admissions) CT angio head and neck: Limited study. No large vessel occlusion. While in the emergency department the patient had recovery of neurologic function with repeat NIH stroke score testing of 0. [facility] health medical records obtained from most recent hospital admission. Review of discharge summary including cardiology neurology and oncology consults concur that the patient has been maximized on anticoagulation therapy and that no further investigation of the patient's stroke symptoms will warrant change in treatment. This was discussed in detail with the patient and patient spouse who both request discharge home given the lack of utility of further observation or testing. Patient will be continued on Eliquis 20 mg daily with instructions to follow-up with his palliative care team. Return precautions reviewed. Patient and spouse verbalized understanding agreement discharge instructions prior to departure Impression Primary Impression: Ischemic cerebrovascular accident (CVA) of frontal lobe Additional Impression: Lung cancer Disposition: HOME, SELF-CARE Condition: Improved Departure-Patient Inst. [place] [facility] [place] Primary Care Physician ASHLEY BAIG (Family) Primary Care Physician Patient Instructions: Stroke Add. Discharge Instructions: Please continue Eliquis and other medications. Follow-up with your pelvic care team and oncologist. Return to the ED if you have new or concerning symptoms. All discharge instructions reviewed with patient and/or family. Voiced understanding. KALI MENJIVAR DO Nov 25, 2020 20:19
[2020-11-25 20:20] LABS: HYPOCHROMASIA 1+
--- NOTE | 2020-11-25 22:01 | Diagnostic Imaging Report ---
PROCEDURE: CT angiography of the head and CT angiography of the neck with and without contrast. TECHNIQUE: Contiguous noncontrast images were obtained from the skull base through the vertex. After intravenous contrast administration, helical CT angiography of the neck was performed. Source data was reformatted into 3D MIP projections. Delayed post contrast acquisition was also obtained. Auto Exposure Controls were utilized during the CT exam to meet ALARA standards for radiation dose reduction. INDICATION: History of stroke. Difficulty breathing. History of lung cancer COMPARISON: CT head from 09/12/2020 FINDINGS: The ventricles and cortical sulci appear mildly prominent, likely from generalized parenchymal volume loss. There is a small focus of encephalomalacia in the left frontal lobe which is likely from the old infarct. There is no midline shift or mass effect. No acute intracranial hemorrhage is seen. There is a focal 7 mm hyperdensity in the left cerebellum which is unchanged since the prior exam. The calvarium appears intact. There is marked motion artifact throughout the exam and evaluation is markedly suboptimal on the CTA. The images are not of angiographic quality. No large aneurysm is seen. No filling defect is seen in the imaged portions of the dural sinuses. There is a large peripherally enhancing septated centrally necrotic lesion in the right upper lung which extends into the chest wall and supraclavicular tissues, with erosion of the first rib. This measures at least 9.5 cm craniocaudal and 10.5 x 5.8 cm on axial imaging. There are marked emphysematous changes in the lung apices. IMPRESSION: 1. Markedly suboptimal examination with motion artifact and non-angiographic bolus timing. The vascular structures are not evaluated. 2. No acute intracranial hemorrhage. Unchanged stable calcified nodule in the left cerebellum. Old left frontal infarct. 3. Large mass in the right upper lung, with erosion through the lung apex and the first rib into the soft tissues of the neck. Dictated by: Dictated on workstation # [id number]
[2020-11-25] MEDS ORDERED: HALOPERIDOL 5 MG/ML (HALDOL) VIAL IV ONE (22:30)
[2020-11-25] MEDS ORDERED: morphine INJ 10 MG/ML 1ML (SYR OR VIAL) IVP STA ×2 (22:39→22:52)
[2020-11-25] MEDS ORDERED: ONDANSETRON 4 MG/2 ML (SDV) Z0FRAN IVP ONE (22:45)
[2020-11-26 00:45] VITALS: BP 99/69
== END 2020-11-26 00:49 | disposition home or self-care (01) ==
LOC: EDUNIT# 19:36 → ER FS 19:37
DX: C34.90 Malignant neoplasm of unspecified part of unspecified bronchus or lung (principal); I63.9 Cerebral infarction, unspecified; E78.00 Pure hypercholesterolemia, unspecified; R29.715 NIHSS score 15; Z77.22 Contact with and (suspected) exposure to environmental tobacco smoke (acute) (chronic)
CPT/HCPCS: 36415; 70496; 70498; 71045; 80053; 82962; 85007; 85027; 85610; 85730; 93005

== ENCOUNTER 2020-11-26 19:25 | Observation (INO) | payer BC ==
--- NOTE | 2020-11-26 19:40 | ED General ---
General Stated Complaint: COMBATIVE Source of Information: EMS Exam Limitations: No Limitations History of Present Illness Date Seen by Provider: Nov 26, 2020 Time Seen by Provider: 19:25 Initial Comments 60-year-old male with stage IV lung cancer presents via EMS with his 's concern that he has been combative and difficult to control. On EMS arrival, patient sedate, resting comfortably a little difficult to arouse, but can answer questions. Vital signs are stable and in no distress. Plans for patient to go to hospice tomorrow morning and as such currently DNR status. Given Methadone and trazadone one hour prior to arrival Allergies and Home Medications Allergies Coded Allergies: No Known Drug Allergies (Unverified , 05/16/20) Home Medications Atorvastatin Calcium 20 Mg Tablet, 20 MG PO DAILY, (Reported) [place] 3 Polyunsat Fatty Acids 1,000 Mg Cap, 1,000 MG PO DAILY, (Reported) Pseudoephedrine HCl 30 Mg Tablet, 30 MG PO Q6H PRN for CONSTIPATION-9TH LINE, (Reported) Patient Home Medication List Home Medication List Reviewed: Yes Review of Systems Review of Systems Constitutional: No fever; malaise, weakness Respiratory: No cough, No short of breath Cardiovascular: No chest pain, No syncope Gastrointestinal: No abdominal pain, No vomiting Musculoskeletal: see HPI, other (generalized aches and pain) Skin: No change in color, No lesions, No rash Past Ysmnhwi-Tteqon-Foayqo Hx Patient Social History Type Used: Cigarettes 2nd Hand Smoke Exposure: Yes Recent Hopitalizations: No Immunizations Up To Date Tetanus Booster (TDap): Unknown Seasonal Allergies Seasonal Allergies: No Past Medical History Surgeries: Yes (CORNEA TRANSPLANT, WRIST-SCREW) Respiratory: Yes (DYSPNEA, lung cancer) Currently Using CPAP: No Currently Using BIPAP: No Cardiac: Yes High Cholesterol Neurological: No Sexually Transmitted Disease: No HIV/AIDS: No Genitourinary: No Gastrointestinal: Yes Gastroesophageal Reflux Musculoskeletal: No Endocrine: No HEENT: Yes (CONTACTS/GLASSES) Loss of Vision: Denies Hearing Impairment: Denies Cancer: No Psychosocial: No Integumentary: No Blood Disorders: No Adverse Reaction/Blood Tranf: No (N/A) Physical Exam Vital Signs Vital Signs - First Documented 11/26/20 19:25 Temp 36.0 Pulse 68 Resp 16 B/P (MAP) 124/60 (81) Pulse Ox 94 O2 Delivery Room Air Capillary Refill : Height, Weight, BMI Height: '" Weight: lbs. oz. kg; 21.21 BMI Method: General Appearance: No Apparent Distress, Chronically ill, Other (sedated) Eyes: Bilateral Eye Normal Inspection, Bilateral Eye PERRL HEENT: PERRL/EOMI, Normal ENT Inspection Neck: Non Tender, Supple Respiratory: Chest Non Tender, Lungs Clear Cardiovascular: Regular Rate, Rhythm, No JVD Gastrointestinal: Non Tender, Soft Extremity: Normal Capillary Refill, Non Tender Progress/Results/Core Measures Suspected Sepsis SIRS Temperature: Pulse: Respiratory Rate: Blood Pressure / Mean: Results/Orders My Orders Orders - ROVENSTINE,THERESA L DO Haloperidol Injection (Haldol Injectio (11/26/20 20:00) Lorazepam Injection (Ativan Injection) (11/26/20 20:00) Ed Iv/Invasive Line Start (11/26/20 21:58) Medications Given in ED Current Medications Medications Dose Ordered Sig/Ty Route Start Time Stop Time Status Last Admin Dose Admin Haloperidol Lactate 5 mg ONCE ONCE IM 11/26/20 20:00 11/26/20 20:01 DC 11/26/20 20:06 5 MG Lorazepam 2 mg ONCE ONCE IVP 11/26/20 20:00 11/26/20 20:01 DC 11/26/20 20:06 2 MG Vital Signs/I&O 11/26/20 11/26/20 19:25 21:20 Temp 36.0 Pulse 68 60 Resp 16 16 B/P (MAP) 124/60 (81) 118/56 Pulse Ox 94 94 O2 Delivery Room Air Room Air Capillary Refill : Departure Communication (Admissions) Time/Spoke to Admitting Phy: 19:[address] Freeman regarding situation of patient having no where to go and being essentially abandoned in this ER. Planned to go to Hospice tomorrow in [place] Can not board over night [place] Impression Primary Impression: Malignant neoplasm of lung metastatic to brain Additional Impressions: Lung cancer Qualified Codes: C34.90 - Malignant neoplasm of unspecified part of unspecified bronchus or lung Transitioned from acute care to hospice Disposition: 30 STILL A PATIENT Condition: Stable Admissions Decision to Admit Reason: Admit from ER (General) Decision to Admit/Date: Nov 26, 2020 Time/Decision to Admit Time: 19:40 Departure-Patient Inst. Decision time for Depature: 19:40 Referrals: LAKIA LEHMAN APRN (PCP) Primary Care Physician [facility]/JORDYN (Family) Primary Care Physician Patient Instructions: Palliative Care Add. Discharge Instructions: initiate Hospice care tomorrow morning as planned THERESA BLUM DO Nov 26, 2020 19:40
[2020-11-26] MEDS ORDERED: LORazepam INJ 2 MG/ML (ATIVAN) VIAL IVP ONE (20:00)
[2020-11-26] MEDS ORDERED: HALOPERIDOL 5 MG/ML (HALDOL) VIAL IM ONE (20:00)
[2020-11-26 23:43] VITALS: BP 118/65
[2020-11-27] MEDS: morphine INJ 4 MG/ML 1 ML (VIAL/SYRINGE) IVP PRN ×2 (03:11→05:56)
[2020-11-27] MEDS: LORazepam INJ 2 MG/ML (ATIVAN) VIAL IVP PRN ×2 (03:11→05:53)
[2020-11-27 04:00] VITALS: BP 117/58
[2020-11-27] MEDS: LORazepam INJ 2 MG/ML (ATIVAN) VIAL IM PRN ×2 (07:48→10:39)
[2020-11-27] MEDS: morphine INJ 4 MG/ML 1 ML (VIAL/SYRINGE) IM PRN ×2 (07:48→10:39)
[2020-11-27 08:01] VITALS: BP 124/87
[2020-11-27] MEDS ORDERED: NICOTINE 21 MG (NICODERM) PATCH TD SCH (09:00)
[2020-11-27] MEDS ORDERED: NICOTINE PATCH REMOVAL TP SCH (09:00)
[2020-11-27] MEDS ORDERED: HALOPERIDOL 5 MG/ML (HALDOL) VIAL IM PRN (10:30)
--- NOTE | 2020-11-27 10:56 | Short Stay Summary ---
HPI History of Present Illness: Pt with metastatic lung cancer brought to ER due to agitation and difficulty caring for him at home. He was already planned to be admitted to Hospice House today. This morning, he is awake and often trying to get out of bed, but does not answer questions and is not agitated. Exam Limitations: clinical condition Date seen by provider: Nov 27, 2020 Time Seen by Provider: 10:15 Attending Physician Nimisha Freeman MD PCP Vale Wilson Aprn Consult Date of Admission Nov 26, 2020 at 22:55 Home Medications Home Medications Reviewed patient Home Medication Reconciliation performed by pharmacy medication reconciliations cephalometric technician and/or nursing. Patients Allergies have been reviewed. Allergies Coded Allergies: No Known Drug Allergies (Unverified , 05/16/20) UKI-Exobpa-Ygwmjm Hx Patient Social History Smoking Status: Heavy Tobacco Smoker 2nd Hand Smoke Exposure: No Recent Hopitalizations: No Alcohol Use?: No Tobacco type used: Cigarettes Have you traveled recently?: Unable to obtain Immunizations Up To Date Tetanus Booster (TDap): Unknown Past Medical History PMHx: Unable to obtain Review of Systems ([place]) Constitutional: other (unable to obtain) Physical Exam-([place]) Physical Exam Vital Signs VS - Last 72 Hours, by Label 11/26/20 11/26/20 11/26/20 11/27/20 19:25 21:20 23:43 00:03 Temp 36.0 36.2 Pulse 68 60 62 Resp 16 16 18 B/P (MAP) 124/60 (81) 118/56 118/65 (82) Pulse Ox 94 94 92 92 O2 Delivery Room Air Room Air Room Air 11/27/20 11/27/20 04:00 08:01 Temp 36.4 36.6 Pulse 70 87 Resp 18 18 B/P (MAP) 117/58 (77) 124/87 (99) Pulse Ox 93 93 Capillary Refill : Less Than 3 Seconds General Appearance: no apparent distress Respiratory: lungs clear Cardiovascular: regular rate, rhythm Neurologic/Psychiatric: alert, other (does not answer questions or appear to respond to name, but is sitting up in bed and mumbles in answer to some questions) Short Stay Diagnosis Discharge Diagnosis-Short Stay Admission Diagnosis Metastatic lung cancer Delirium/agitation Final Discharge Diagnosis Metastatic lung cancer Delirium/agitation Conclusion Plan See problem list Assessment/Plan Assessment/Plan (1) Delirium Status: Acute Assessment & Plan: Managed with prn medications (2) Stage 4 lung cancer Assessment & Plan: Transferring to [facility] today. NIMISHA FREEMAN MD Nov 27, 2020 10:56
[2020-11-27 12:06] VITALS: BP 124/87
== END 2020-11-27 12:00 | disposition hospice, inpatient (51) ==
LOC: EDUNIT# 19:25 → ER FS 19:26 → 4TH 22:55
PROVIDERS: ADMIT Family Medicine; ATTEND Family Medicine
DX: C78.00 Secondary malignant neoplasm of unspecified lung (principal); R41.0 Disorientation, unspecified; E78.00 Pure hypercholesterolemia, unspecified; K21.9 Gastro-esophageal reflux disease without esophagitis; F17.210 Nicotine dependence, cigarettes, uncomplicated; Z79.899 Other long term (current) drug therapy
CPT/HCPCS: 96372; 96374; 99284; G0378